=== PATIENT | female | born 1975 | race Two or more races ===

== ENCOUNTER 2017-07-30 07:42 | Outpatient (CLI) | payer OTHER ==
--- NOTE | 2017-07-30 10:25 | Ultrasound Report ---
RIGHT BREAST ULTRASOUND: 07/30/2017 CLINICAL INDICATION: Palpable abnormality 9 o'clock. TECHNIQUE: Real-time scanning was performed with insurance healthcare representative static images obtained. FINDINGS: Ultrasound of the lateral right breast was performed. Heterogeneous fibroglandular parenc hyma is seen. No discrete solid or cystic nodule is appreciated. No sonographically suspicious find ings are identified. IMPRESSION: NEGATIVE EXAMINATION. RECOMMENDATION: Routine annual screening unless otherwise clinically indicated. BIRADS CATEGORY 1 - NEGATIVE. JOB #: [id number] EXT JOB #:[id number]
--- NOTE | 2017-07-30 12:19 | Mammography Report ---
DIGITAL DIAGNOSTIC BILATERAL MAMMOGRAM: 07/30/2017 CLINICAL INDICATION: Palpable abnormality right outer breast. TECHNIQUE: Bilateral CC, laterally exaggerated CC, MLO views, right true lateral view. A marker was placed at the site of palpable abnormality identified by the patient in the right outer breast. This is the patient's baseline examination. FINDINGS: The breasts demonstrate heterogeneously dense fibroglandular parenchyma bilaterally. A fe w punctate, typically benign calcifications are present. No suspicious masses, clustered microcalcif ications, or regions of architectural distortion are identified. Specifically, no mammographic abnor mality is appreciated in the right outer breast, at the site of marker. Please also refer to right b reast ultrasound of the same day. IMPRESSION: BENIGN FINDINGS. RECOMMENDATION: Routine annual screening unless otherwise clinically indicated. BIRADS CATEGORY 2 - BENIGN FINDINGS. STANDARD QUALIFYING STATEMENTS 1. This examination was reviewed with the aid of Computer-Aided Detection (CAD). 2. A negative or benign imaging report should not delay biopsy if clinically suspicious findings are present. Consider surgical consultation if warranted. More than 5% of cancers are not identified by i maging. 3. Dense breasts may obscure an underlying neoplasm. JOB #: [id number] EXT JOB #:[id number]
== END 2017-07-30 07:43 | disposition home or self-care (01) ==
LOC: DI 07:42
PROVIDERS: ATTEND Obstetrics & Gynecology
DX: N63.10 Unspecified lump in the right breast, unspecified quadrant (principal)
CPT/HCPCS: 76642; 77066

== ENCOUNTER 2020-10-24 13:41 | Emergency (ER) | payer OTHER ==
[2020-10-24] MEDS ORDERED: predniSONE 20 MG TABLET PO STA (14:07)
[2020-10-24] MEDS ORDERED: DEXAMETHASONE 10 MG/ML VIAL IV STA (14:13)
[2020-10-24] MEDS ORDERED: EPINEPHrine 1 MG/ML AMP IM STA (14:13)
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
[2020-10-24 15:23] VITALS: BP 129/67
== END 2020-10-24 15:22 | disposition home or self-care (01) ==
LOC: ED 13:41
DX: T78.40XA Allergy, unspecified, initial encounter (principal); L50.9 Urticaria, unspecified; R22.0 Localized swelling, mass and lump, head; X58.XXXA Exposure to other specified factors, initial encounter
CPT/HCPCS: 96372; 99283; 99284

== ENCOUNTER 2021-09-10 18:05 | Emergency (ER) | payer OTHER ==
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
[2021-09-10] MEDS ORDERED: ACETAMINOPHEN 325 MG TABLET PO STA (19:25)
[2021-09-10] MEDS ORDERED: IBUPROFEN 600 MG TABLET PO STA (19:25)
[2021-09-10] MEDS ORDERED: methocarbamoL 500 MG TABLET PO STA (19:25)
[2021-09-10] MEDS ORDERED: HYDROcod/ACET 5/325 Prepack 4 PO STA (19:25)
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
[2021-09-10 21:11] VITALS: BP 141/80
== END 2021-09-10 21:10 | disposition home or self-care (01) ==
LOC: ED 18:05
DX: S16.1XXA Strain of muscle, fascia and tendon at neck level, initial encounter (principal); S29.012A Strain of muscle and tendon of back wall of thorax, initial encounter; V43.52XA Car driver injured in collision with other type car in traffic accident, initial encounter; Y92.89 Other specified places as the place of occurrence of the external cause
CPT/HCPCS: 72125; 72128; 99282; 99284; A9270

== ENCOUNTER 2022-02-03 08:00 | Outpatient (CLI) | payer OTHER | END 2022-02-03 23:59 | disposition home or self-care (01) | LOC: LAB.N 08:00 | PROVIDERS: ATTEND Nurse Practitioner | DX: N39.0 Urinary tract infection, site not specified (principal) | CPT/HCPCS: 87077; 87086; 87181 ==

== ENCOUNTER 2023-01-22 08:22 | Outpatient (CLI) | payer OTHER ==
--- NOTE | 2023-01-23 10:38 | Mammography Report ---
BILATERAL DIGITAL SCREENING MAMMOGRAM 3D/2D: 01/22/2023 CLINICAL: Routine screening. Comparison is made to exam dated: 07/30/2017 mammogram - [facility]. Both breasts are extremely dense, which lowers the sensitivity of mammography (category d />75% gland ular tissue). No significant masses, calcifications, or other findings are seen in either breast. There has been no significant interval change. IMPRESSION: NEGATIVE There is no mammographic evidence of malignancy. A 1 year screening mammogram is recommended. Based on the Tyrer Cuzick model (a risk assessment model) the patients lifetime risk is 14.8% and he r 10 year risk is 2.7%. According to the ACR, ACS, and NCCN guidelines, an annual breast MRI exam veronica ng with mammogram is recommended if the patients lifetime risk is 20% or greater. This exam was interpreted at Station ID: [id number]. NOTE: For mammograms, a report in lay terms will be sent to the patient. Approximately 15% of breast malignancies will not be visualized mammographically. In the management of a palpable breast mass, a negative mammogram must not discourage biopsy of a clinically suspicious lesion. Electronically Signed By: Hao calix/ike:01/22/2023 11:48:46 letter sent: No_Letter ACR BI-RADS Category 1: Negative 3341F PARENCHYMAL PATTERN: (VD) - The breast(s) demonstrate(s) extremely dense parenchyma, limiting the sen sitivity of mammography. BI-RADS CATEGORY: (1) - 1 Mammogram [id number] 1 year screening LATERALITY: (B)
== END 2023-01-22 08:23 | disposition home or self-care (01) ==
LOC: DI.N 08:22
PROVIDERS: ATTEND Nurse Practitioner
DX: Z12.31 Encounter for screening mammogram for malignant neoplasm of breast (principal)

== ENCOUNTER 2023-03-09 07:20 | Emergency (ER) | payer OTHER ==
--- OUTSIDE RECORDS SUMMARY | 2023-03-09 07:34 | EXTERNAL MEDICAL SUMMARY RPT | Continuity of Care Document ---
Author Name Unknown Address [address] [place] [address] Phone Organization [facility] Address [address] [place] [address] Phone Care Team Providers Care Forestry Worker Name Role Phone Unavailable Unavailable Unavailable Franci Che Unavailable Unavaila ble System Maintenance Unavailable Unavailable Cynthia Anderson Lpn Unavailable Unavailable System Maintenance Unavailable Unavailable Medications date description facility 2022-12-20 00:00 estradiol All 2022-12-20 00:00 estradiol All 2022-12-20 00:00 estradiol All 2022-12-20 00:00 estradiol All 2022-12-20 00:00 propranolol All 2022-12-20 00:00 propranolol All 2022-12-20 00:00 propranolol All 2022-12-20 00:00 propranolol All 2022-12-21 00:00 propranolol All 2022-12-21 00:00 propranolol All 2022-12-21 00:00 propranolol All 2022-12-21 00:00 propranolol All 2023-01-18 00:00 propranolol All 2022-12-20 00:00 amitriptyline All 2022-12-20 00:00 amitriptyline All 2022-12-20 00:00 amitriptyline All 2022-12-20 00:00 amitriptyline All 2022-12-20 00:00 amitriptyline All 2022-12-20 00:00 amitriptyline All 2022-12-20 00:00 amitriptyline All 2022-12-20 00:00 amitriptyline All 2022-12-20 00:00 estradiol All 2022-12-20 00:00 estradiol All 2022-12-20 00:00 estradiol All 2022-12-20 00:00 estradiol All 2022-12-20 00:00 propranolol All 2022-12-20 00:00 propranolol All 2022-12-20 00:00 propranolol All 2022-12-20 00:00 propranolol All 2022-12-21 00:00 propranolol All 2022-12-21 00:00 propranolol All 2022-12-21 00:00 propranolol All 2022-12-21 00:00 propranolol All 2023-01-18 00:00 propranolol All 2022-12-20 00:00 propranolol All 2022-12-20 00:00 propranolol All 2022-12-20 00:00 propranolol All 2022-12-20 00:00 propranolol All 2022-12-21 00:00 propranolol All 2022-12-21 00:00 propranolol All 2022-12-21 00:00 propranolol All 2022-12-21 00:00 propranolol All 2023-01-18 00:00 propranolol All 2022-12-20 00:00 estradiol All 2022-12-20 00:00 estradiol All 2022-12-20 00:00 estradiol All 2022-12-20 00:00 estradiol All 2022-12-20 00:00 amitriptyline All 2022-12-20 00:00 amitriptyline All 2022-12-20 00:00 amitriptyline All 2022-12-20 00:00 amitriptyline All 2022-12-20 00:00 propranolol All 2022-12-20 00:00 propranolol All 2022-12-20 00:00 propranolol All 2022-12-20 00:00 propranolol All 2022-12-21 00:00 propranolol All 2022-12-21 00:00 propranolol All 2022-12-21 00:00 propranolol All 2022-12-21 00:00 propranolol All 2023-01-18 00:00 propranolol All 2022-12-20 00:00 amitriptyline All 2022-12-20 00:00 amitriptyline All 2022-12-20 00:00 amitriptyline All 2022-12-20 00:00 amitriptyline All 2022-12-20 00:00 estradiol All 2022-12-20 00:00 estradiol All 2022-12-20 00:00 estradiol All 2022-12-20 00:00 estradiol All Problems date description facility 2022-12-20 00:00 Screening for malignant neoplas m of cervix All 2022-12-20 00:00 Screening for malignant neoplas m of cervix All 2022-12-20 00:00 Screening for malignant neoplas m of cervix All 2022-12-20 00:00 Screening for malignant neoplas m of cervix All 2022-12-20 00:00 Insomnia All 2022-12-20 00:00 Insomnia All 2022-12-20 00:00 Insomnia All 2022-12-20 00:00 Screening mammography All 2022-12-20 00:00 Screening mammography All 2022-12-20 00:00 Screening mammography All 2022-12-20 00:00 Menopause finding All 2022-12-20 00:00 Menopause finding All 2022-12-20 00:00 Menopause finding All 2022-12-20 00:00 Atrophy of vagina All 2022-12-20 00:00 Atrophy of vagina All 2022-12-20 00:00 Atrophy of vagina All 2022-12-20 00:00 Depressive disorder, not elsewh ere classified All 2022-12-20 00:00 Depressive disorder, not elsewh ere classified All 2022-12-20 00:00 Depressive disorder, not elsewh ere classified All 2022-12-20 00:00 Depressive disorder All 2022-12-20 00:00 Depressive disorder All 2022-12-20 00:00 Depressive disorder All 2022-12-20 00:00 Irregular heart beat All 2022-12-20 00:00 Irregular heart beat All 2022-12-20 00:00 Irregular heart beat All 2022-12-20 00:00 Irregular heart beat All 2022-12-20 00:00 Cardiac dysrhythmia, unspecifie d All 2022-12-20 00:00 Cardiac dysrhythmia, unspecifie d All 2022-12-20 00:00 Cardiac dysrhythmia, unspecifie d All 2022-12-20 00:00 Cardiac dysrhythmia, unspecifie d All 2022-12-20 00:00 Procedure carried out on subjec t All 2022-12-20 00:00 Procedure carried out on subjec t All 2022-12-20 00:00 Procedure carried out on subjec t All 2022-12-20 00:00 Procedure carried out on subjec t All 2022-12-20 00:00 Gynecologic examination All 2022-12-20 00:00 Gynecologic examination All 2022-12-20 00:00 Gynecologic examination All 2022-12-20 00:00 Major depressive disorder, sing le episode, unspecified All 2022-12-20 00:00 Major depressive disorder, sing le episode, unspecified All 2022-12-20 00:00 Major depressive disorder, sing le episode, unspecified All 2022-12-20 00:00 Insomnia, unspecified All 2022-12-20 00:00 Insomnia, unspecified All 2022-12-20 00:00 Insomnia, unspecified All 2022-12-20 00:00 Cardiac arrhythmia, unspecified All 2022-12-20 00:00 Cardiac arrhythmia, unspecified All 2022-12-20 00:00 Cardiac arrhythmia, unspecified All 2022-12-20 00:00 Cardiac arrhythmia, unspecified All 2022-12-20 00:00 Menopausal and female climacter ic states All 2022-12-20 00:00 Menopausal and female climacter ic states All 2022-12-20 00:00 Menopausal and female climacter ic states All 2022-12-20 00:00 Postmenopausal atrophic vaginit is All 2022-12-20 00:00 Postmenopausal atrophic vaginit is All 2022-12-20 00:00 Postmenopausal atrophic vaginit is All 2022-12-20 00:00 Asymptomatic postmenopausal sta tus (age-related) (natural) All 2022-12-20 00:00 Asymptomatic postmenopausal sta tus (age-related) (natural) All 2022-12-20 00:00 Asymptomatic postmenopausal sta tus (age-related) (natural) All 2022-12-20 00:00 Routine gynecological examinati on All 2022-12-20 00:00 Routine gynecological examinati on All 2022-12-20 00:00 Routine gynecological examinati on All 2022-12-20 00:00 examination or test, unconfirmed All 2022-12-20 00:00 examination or test, unconfirmed All 2022-12-20 00:00 examination or test, unconfirmed All 2022-12-20 00:00 examination or test, unconfirmed All 2022-12-20 00:00 Other screening mammogram All 2022-12-20 00:00 Other screening mammogram All 2022-12-20 00:00 Other screening mammogram All 2022-12-20 00:00 Screening for malignant neoplas ms of the cervix All 2022-12-20 00:00 Screening for malignant neoplas ms of the cervix All 2022-12-20 00:00 Screening for malignant neoplas ms of the cervix All 2022-12-20 00:00 Screening for malignant neoplas ms of the cervix All 2022-12-20 00:00 Encounter for gyneco logical examination (general) (routine) with abnormal findings All 2022-12-20 00:00 Encounter for gyneco logical examination (general) (routine) with abnormal findings All 2022-12-20 00:00 Encounter for gyneco logical examination (general) (routine) with abnormal findings All 2022-12-20 00:00 Encounter for gyneco logical examination (general) (routine) without abnormal findings All 2022-12-20 00:00 Encounter for gyneco logical examination (general) (routine) without abnormal findings All 2022-12-20 00:00 Encounter for gyneco logical examination (general) (routine) without abnormal findings All 2022-12-20 00:00 Encounter for screen ing mammogram for malignant neoplasm of breast All 2022-12-20 00:00 Encounter for screen ing mammogram for malignant neoplasm of breast All 2022-12-20 00:00 Encounter for screen ing mammogram for malignant neoplasm of breast All 2022-12-20 00:00 Encounter for screening for mal ignant neoplasm of cervix All 2022-12-20 00:00 Encounter for screening for mal ignant neoplasm of cervix All 2022-12-20 00:00 Encounter for screening for mal ignant neoplasm of cervix All 2022-12-20 00:00 Encounter for screening for mal ignant neoplasm of cervix All 2022-12-20 00:00 Encounter for test, r esult unknown All 2022-12-20 00:00 Encounter for test, r esult unknown All 2022-12-20 00:00 Encounter for test, r esult unknown All 2022-12-20 00:00 Encounter for test, r esult unknown All Procedures date description facility 2022-12-20 00:00 Visit Code Hold All 2022-12-20 00:00 Visit Code Hold All 2022-12-20 00:00 Visit Code Hold All 2022-12-20 00:00 Visit Code Hold All 2022-12-27 00:00 Visit Code Hold All 2022-12-20 00:00 POC [facility] GONADOTROPIN [facility]A Y All 2022-12-20 00:00 POC CHORIONIC GONADOTROPIN ASSA Y All 2022-12-20 00:00 POC CHORIONIC GONADOTROPIN ASSA Y All 2022-12-20 00:00 POC CHORIONIC GONADOTROPIN ASSA Y All Results/Labs test date author facility value unit interpretation Result panel 1 (unknown) (no date) (unknown) All (no value) (units unknown) (unknown) Result panel 2 (unknown) (no date) (unknown) All (no value) (units unknown) (unknown) Result panel 3 (unknown) (no date) (unknown) All (no value) (units unknown) (unknown) Result panel 4 (unknown) (no date) (unknown) All (no value) (units unknown) (unknown) Result panel 5 (unknown) (no date) (unknown) All (no value) (units unknown) (unknown) Result panel 6 (unknown) (no date) (unknown) All (no value) (units unknown) (unknown) Result panel 7 (unknown) (no date) (unknown) All (no value) (units unknown) (unknown) Result panel 8 (unknown) (no date) (unknown) All (no value) (units unknown) (unknown) Result panel 9 (unknown) (no date) (unknown) All (no value) (units unknown) (unknown) Result panel 10 (unknown) (no date) (unknown) All (no value) (units unknown) (unknown) Result panel 11 (unknown) (no date) (unknown) All (no value) (units unknown) (unknown) Result panel 12 (unknown) (no date) (unknown) All (no value) (units unknown) (unknown) Result panel 13 (unknown) (no date) (unknown) All (no value) (units unknown) (unknown) Result panel 14 (unknown) (no date) (unknown) All (no value) (units unknown) (unknown) Result panel 15 (unknown) (no date) (unknown) All (no value) (units unknown) (unknown) Result panel 16 (unknown) (no date) (unknown) All (no value) (units unknown) (unknown) Result panel 17 (unknown) (no date) (unknown) All (no value) (units unknown) (unknown) Result panel 18 (unknown) (no date) (unknown) All (no value) (units unknown) (unknown) Result panel 19 (unknown) (no date) (unknown) All (no value) (units unknown) (unknown) Result panel 20 (unknown) (no date) (unknown) All (no value) (units unknown) (unknown) Result panel 21 (unknown) (no date) (unknown) All (no value) (units unknown) (unknown) Social History date description facility 2022-12-23 00:00 Unknown if ever smoked All 2022-12-23 00:00 Unknown if ever smoked All 2022-12-25 00:00 Unknown if ever smoked All 2022-12-26 00:00 Unknown if ever smoked All 2022-12-31 00:00 Unknown if ever smoked All 2023-01-01 00:00 Unknown if ever smoked All 2023-01-23 00:00 Unknown if ever smoked All Vital Signs date measurement value units 2022-12-20 00:00 BMI 28.74 kg/m2 2022-12-20 00:00 BP_diastolic 74 mmHg 2022-12-20 00:00 BP_systolic 134 mmHg 2022-12-20 00:00 height_metric 159.38 cm 2022-12-20 00:00 height_standard 62.75 in 2022-12-20 00:00 temperature_metric 36.61 C 2022-12-20 00:00 temperature_standard 97.9 F 2022-12-20 00:00 weight_metric 72.76 kg 2022-12-20 00:00 weight_standard 160.4 lb
[2023-03-09 07:39] VITALS: BP 143/94
[2023-03-09] MEDS ORDERED: DEXAMETHASONE 10 MG/ML VIAL PO STA (08:10)
[2023-03-09] MEDS ORDERED: CHERRY SYRUP 10 ML UDC PO ONE (08:10)
--- NOTE | 2023-03-09 08:13 | ED Physician Documentation ---
PD HPI HEENT - Stated complaint Stated Complaint: EAR/THROAT PX - Chief complaint Chief Complaint: Heent - History obtained from History obtained from: Patient - History of Present Illness Timing - onset: How many days ago (3) Timing - duration: Days (3) Timing - details: Gradual onset, Still present Location: Right ear, Left ear, Throat Improves: Medication Worsens: Swalllowing Associated symptoms: Congestion, Cough (mild non productive). No: Fever, Rhinorrhea, Unable to swallow, Swollen nodes, Facial swelling, Headache Similar symptoms before: Diagnosis (uri) Recently seen: Not recently seen - Additional information Additional information: Previously well Alley Sparrow has developed a sore throat and ear pain. She has pain with swallowing and she has pain into her ears with swallowing. She has an 11-year-old daughter who has recently been ill with a similar illness who resolved her symptoms within several days. The patient's symptoms are increasing. She has developed a cough which is nonproductive and she has not had fever. Review of Systems Constitutional: denies: Fever Eyes: denies: Decreased vision Ears: reports: Ear pain Nose: reports: Congestion Throat: reports: Sore throat Cardiac: denies: Chest pain / pressure, Palpitations Respiratory: reports: Cough. denies: Dyspnea, Wheezing GI: denies: Abdominal Pain, Nausea, Vomiting, Constipation, Diarrhea : denies: Dysuria, Frequency PD PAST MEDICAL HISTORY - Past Medical History Past Medical History: Yes Musculoskeletal: None - Past Surgical History Past Surgical History: Yes General: Appendectomy - Present Medications Home Medications: Ambulatory Orders Medication Instructions Recorded Confirmed HYDROcod/ACETAM 5/325 [[place] 5/325] 1 ea PO Q6H PRN #15 tablet 09/10/21 methocarbamoL [Robaxin] 500 mg PO Q6H PRN #20 tablet 09/10/21 - Allergies Allergies/Adverse Reactions: Allergies Allergy/AdvReac Type Severity Reaction Status Date / Time scallops Allergy Edema Verified 03/09/23 07:38 - Social History Does the pt smoke?: No Smoking Status: Never smoker Does the pt drink ETOH?: No Does the pt have substance abuse?: No - Immunizations Immunizations are current?: Yes PD ED PE NORMAL - Vitals Vital signs reviewed: Yes (tacky and hypertensive ) - General General: Alert and oriented X 3, No acute distress, Well developed/nourished, Other (nasal quality to the voice) - HEENT HEENT: Atraumatic, PERRL, EOMI, Other (minimal erythema to the right TM without distortion of the landmarks. Right tonsil swollen(2+), cryptic and without exudate. Right is 1+ ) - Neck Neck: Supple, no meningeal sign, No bony TTP - Cardiac Cardiac: RRR, No murmur - Respiratory Respiratory: No respiratory distress, Clear bilaterally - Abdomen Abdomen: Soft, Non tender - Back Back: No CVA TTP, No spinal TTP - Derm Derm: Normal color, Warm and dry, No rash - Extremities Extremities: No deformity, No edema - Neuro Neuro: Alert and oriented X 3, electric welder helper 2-12 intact, No motor deficit, No sensory deficit, Normal speech Eye Opening: Spontaneous Motor: Obeys Commands Verbal: Oriented GCS Score: 15 - Psych Psych: Normal mood, Normal affect Results - Vitals Vitals: Vital Signs - 24 hr 03/09/23 07:32 Temperature 37 C Heart Rate 118 H Respiratory 16 Rate Blood Pressure 143/94 H O2 Saturation 98 Oxygen O2 Source Room air PD Medical Decision Making - ED course Complexity details: considered differential, d/w patient ED course: Alley Sparrow is a 47-year-old female who presents into the emergency department with a sore throat and ear pain. On exam she has mild erythema of the right ear the left is entirely clear and the right tonsil is swollen with crypts and no exudate. She has been exposed to a child of hers who has had a URI that resolved within days and I suspect this patient's infection is a viral infection which does not appear to require an antibiotic. I discussed these findings with the patient we have provided a dose of dexamethasone. I have indicated to the patient that she does not have exudate t o her tonsil today and I have encouraged her to use saline gargle to prevent superinfection. I have asked her to follow-up with her primary should she develop production of phlegm with her cough. Departure - Departure Disposition: 01 Home, Self Care Clinical Impression: Viral URI Condition: Stable Instructions: ED URI Viral Follow-Up: SUSHMA KELLY [Primary Care Provider] - Comments: Alley, today it looks like you have a viral respiratory infection and there is some swelling especially to your right tonsil and a bit of inflammation in your right ear. We have given you a dose of dexamethasone today and we expect you to have improvement throughout the day today. I do not see anything that requires an antibiotic today. If you begin to cough up yellow-green phlegm have persistence of your symptoms or worsening of your symptoms follow-up with your primary care doctor for reevaluation. I would recommend using some warm water with a pinch of salt in it, and gargle several times per day to prevent superinfection of this swollen tonsil on the right side.
== END 2023-03-09 08:28 | disposition home or self-care (01) ==
LOC: ED 07:20
DX: J06.9 Acute upper respiratory infection, unspecified (principal)
CPT/HCPCS: 99282; 99283; A9270

== ENCOUNTER 2023-03-11 19:27 | Emergency (ER) | payer OTHER ==
[2023-03-11 19:34] VITALS: BP 140/90
--- OUTSIDE RECORDS SUMMARY | 2023-03-11 19:48 | EXTERNAL MEDICAL SUMMARY RPT | Continuity of Care Document ---
Author Name Unknown Address [address] [place] [address] Phone Organization [facility] Address [address] [place] [address] Phone Care Team Providers Care Laboratory Cureman Name Role Phone Unavailable Unavailable Unavailable Franci [...]
[2023-03-11 20:12] LABS: RAPID STREP SCREEN Negative (Negative)
--- NOTE | 2023-03-11 20:35 | ED Physician Documentation ---
PD HPI HEENT - Stated complaint Stated Complaint: SORE THROAT, L EAR PX - Chief complaint Chief Complaint: Heent - History obtained from History obtained from: Patient (Otherwise healthy 47-year-old woman has been sick with a stuffy nose and developed severe left ear pain tonight. She also has muffled hearing. She has a mild sore throat.) PD PAST MEDICAL HISTORY - Past Medical History Musculoskeletal: None - Past Surgical History Past Surgical History: Yes General: Appendectomy - Present Medications Home Medications: Ambulatory Orders Medication Instructions Recorded Confirmed HYDROcod/ACETAM 5/325 [[place] 5/325] 1 ea PO Q6H PRN #15 tablet 09/10/21 methocarbamoL [Robaxin] 500 mg PO Q6H PRN #20 tablet 09/10/21 Amox/Clav 875/125 [Augmentin] 1 each PO Q12H #20 tablet 03/11/23 HYDROcod/ACETAM 5/325 [[place] 5/325] 1 - 2 tab PO Q6H PRN #10 tablet 03/11/23 - Allergies Allergies/Adverse Reactions: Allergies Allergy/AdvReac Type Severity Reaction Status Date / Time scallops Allergy Edema Verified 03/11/23 19:29 - Social History Does the pt smoke?: No Smoking Status: Never smoker Does the pt drink ETOH?: No Does the pt have substance abuse?: No - Immunizations Immunizations are current?: Yes PD ED PE NORMAL - Vitals Vital signs reviewed: Yes - General General: Alert and oriented X 3, Other (She appears uncomfortable clutching the left ear) - HEENT HEENT: Pharynx benign, Other (Very severe left otitis media to the point of potential rupture) - Neck Neck: Supple, no meningeal sign, No bony TTP - Neuro Neuro: Alert and oriented X 3 Results - Vitals Vitals: Vital Signs - 24 hr 03/11/23 19:29 Temperature 36.8 C Heart Rate 100 Respiratory 20 Rate Blood Pressure 140/90 H O2 Saturation 100 Oxygen O2 Source Room air - Labs Labs: Laboratory Tests 03/11/23 19:50 Group A Strep Rapid Negative Departure - Departure Disposition: Home, Self Care Clinical Impression: Otitis media, acute Qualifiers: Otitis media type: suppurative Laterality: left Recurrence: non-recurrent Spontaneous tympanic membrane rupture: without spontaneous rupture Qualified Code(s): H66.002 - Acute suppurative otitis media without spontaneous rupture of ear drum, left ear Condition: Good Record reviewed to determine appropriate education?: Yes Instructions: ED Otitis Media Acute Adult Prescriptions: Amox/Clav 875/125 [Augmentin] 1 each PO Q12H #20 tablet HYDROcod/ACETAM 5/325 [[place] 5/325] 1 - 2 tab PO Q6H PRN #10 tablet PRN Reason: Pain Comments: I sent your prescription electronically to [facility] in [place]. Your ear infection is bad enough that it is possible that it will perforate which case pain will actually improve. Follow-up with your primary care physician in 1 week for recheck. Return for new or worsening symptoms. I am prescribing a short course of narcotic pain medication for you. These are potentially dangerous and addictive medications that should be used carefully. These medications may constipate you. Take an eqmg-jyg-[id number] stool softener (docusate) twice daily with plenty of water while taking these medications. If you go 24 hours without a bowel movement, take ibho-wuf-[id number] miralax, per package instructions. Do not drink or drive while taking these medications. If you received narcotic or sedating medications while in the emergency department, do not drive for 24 hours. Store this medication in a safe, secure place and out of reach of children. It is a violation of federal law to give or sell this medication to another person or to use in a manner other than prescribed. The ED will not refill narcotic prescriptions, including prescriptions lost or stolen. To dispose of unwanted medications: 1. [facility] provides a drop box for medication in pill form only (no liquids) 8:00 am to 4:30 p.m. Saturday-Saturday in the lobby of the [facility], [address] [place] [address]. Empty pills into ziplock bag before disposal. Call [phone] for information. 2.[email or web address] is a free service available to all [facility] residents. Go to [email or web address] Note that many narcotic pain relievers also contain Tylenol/acetaminophen. Please ensure that your total dose of acetaminophen from all sources does not exceed 3 g (3000 mg) per day.
[2023-03-11] MEDS: HYDROcod/ACET 5/325 Prepack 4 PO STA (20:40)
[2023-03-11] MEDS: AMOX/CLAV 875 MG/125 MG TABLET PO STA (20:41)
== END 2023-03-11 20:44 | disposition home or self-care (01) ==
LOC: ED 19:27
DX: H66.002 Acute suppurative otitis media without spontaneous rupture of ear drum, left ear (principal)
CPT/HCPCS: 87070; 87430; 99283; A9270

== ENCOUNTER 2024-04-25 15:28 | Outpatient (CLI) | payer OTHER ==
--- NOTE | 2024-04-26 02:23 | XRAY Report ---
PROCEDURE: Foot 1-2V LT INDICATIONS: LEFT FOOT PAIN TECHNIQUE: 2 views of the foot were acquired. COMPARISON: None. FINDINGS: Bones: No fractures or dislocations. No suspicious bony lesions. Soft tissues: No tibiotalar joint effusion. Achilles tendon appears normal. IMPRESSION: No acute bony abnormality. Reviewed by: Raphael Beavers MD on 04/26/2024 2:22 AM PDT Approved by: Raphael Beavers MD on 04/26/2024 2:22 AM PDT Station ID: [id number]
--- NOTE | 2024-04-26 02:38 | XRAY Report ---
PROCEDURE: Ankle 3+V LT INDICATIONS: LEFT ANKLE PAIN TECHNIQUE: 3 views of the ankle were acquired. COMPARISON: None. FINDINGS: Bones: No fractures or dislocations. Ankle mortise is normally aligned. No suspicious bony lesions . Soft tissues: No tibiotalar joint effusion. Lateral soft tissue swelling Achilles tendon appears nor mal. IMPRESSION: Lateral ankle sprain. No acute bony abnormality. Reviewed by: Raphael Beavers MD on 04/26/2024 2:36 AM PDT Approved by: Raphael Beavers MD on 04/26/2024 2:36 AM PDT Station ID: [id number]
== END 2024-04-25 15:29 | disposition home or self-care (01) ==
LOC: DI 15:28
PROVIDERS: ATTEND Physician Assistant Medical
DX: M79.672 Pain in left foot (principal); S93.402A Sprain of unspecified ligament of left ankle, initial encounter